=== PATIENT | male | born 1960 | race Caucasian/White ===

== ENCOUNTER 2022-04-10 07:32 | Inpatient (IN) | payer BC, OTHER ==
[~2022-04-10] VITALS: Ht 180.3 cm; Wt 133.1 kg
[2022-04-10 08:00] LABS: Basophils # (auto) 0.1 10 ^3/uL (0-0.2); Basophils % (auto) 1.4 % (0.0-2.0); Eosinophils # (auto) 0.1 10 ^3/uL (0-0.8); Eosinophils % (auto) 1.6 % (0.0-7.0); Hematocrit 42.4 % (41.0-53.0); Hemoglobin 14.4 g/dL (13.5-17.5); Lymphocytes # (auto) 2.6 10 ^3/uL (0.4-5.4); Lymphocytes % (auto) 32.9 % (10.0-50.0); Mean Corpuscular Hemoglobin 30.7 pg (28.0-32.0); Mean Corpuscular Hgb Conc. 34.1 g/dL (32.0-36.0); Mean Corpuscular Volume 90.3 fL (80.0-100.0); Monocytes # (auto) 0.8 10 ^3/uL (0-1.3); Neutrophils # (auto) 4.3 10 ^3/uL (1.6-8.6); Neutrophils % (auto) 54.1 % (37.0-80.0); Red Blood Cells 4.69 10^6/uL (4.5-5.90); Red Cell Distribution Width 13.3 % (11.8-14.3); White Blood Cell 7.9 10^3/uL (4.4-10.8)
[2022-04-10 08:17] LABS: Albumin 4.1 g/dL (3.4-5.0); Calcium 9.3 mg/dL (8.5-10.1); Potassium 3.9 mmol/L (3.5-5.1)
[2022-04-10 08:21] LABS: Bilirubin, Total 0.3 mg/dL (0.2-1.0); Total Protein 7.5 g/dL (6.4-8.2)
[2022-04-10 08:28] LABS: BUN/Creatinine Ratio 20.2
[2022-04-10 08:35] LABS: Urine Bacteria NONE SEEN /hpf (None Seen); Urine Blood Negative /uL (Negative); Urine Specific Gravity 1.009 (1.001-1.035); Urine WBC <1 /hpf (0 - 3)
[2022-04-10 08:47] LABS: Alcohol, Urine < 3.0 mg/dL (0-10); Amphetamine Screen, Urine NEGATIVE (NEGATIVE); Barbiturate Scree,Urine NEGATIVE (NEGATIVE); Benzodiazephine Screen, Urine NEGATIVE (NEGATIVE); Cannabinoid Screen, Urine NEGATIVE (NEGATIVE); Cocaine Screen, Urine NEGATIVE (NEGATIVE); Opiate Scree,Urine NEGATIVE (NEGATIVE); Phencyclidine Screen, Urine NEGATIVE (NEGATIVE)
[2022-04-10] MEDS ORDERED: NITROGLYCERIN 0.4 MG SL TAB SL PRN (10:15)
[2022-04-10] MEDS ORDERED: MORPHINE SULFATE INJ 2 MG/ml SYRG IV PRN (10:15)
[2022-04-10] MEDS ORDERED: DEXTROSE (50%) 50ML SYRG IV PRN (10:30)
[2022-04-10] MEDS: SODIUM CHLORIDE 0.9% 1,000 ML IV SCH (10:41)
[2022-04-10] MEDS: ACCU-CHEK COMFORT CURVE STRIP VI SCH ×2 (12:30→18:31)
[2022-04-10] MEDS: InsuLIN REG 1unit/0.01ml Soln (100units/ml) SC SCH ×2 (12:37→18:37)
[2022-04-10] MEDS: ACETAMINOPHEN 500 MG TAB PO PRN ×2 (15:40→22:20)
[2022-04-10] MEDS ORDERED: ENOXAPARIN SOD 30 MG/0.3 ML SYRINGE SC ONE (18:15)
[2022-04-10] MEDS ORDERED: CLOPIDOGREL BISULFATE 75 MG TAB PO ONE (18:15)
[2022-04-10] MEDS ORDERED: IOHEXOL 350 MG/ML 100ML IJ ONE (18:53)
[2022-04-10] MEDS ORDERED: LORazepam 2MG/ML-1ML VIAL IV PRN (20:45)
[2022-04-10] MEDS ORDERED: GABA300C10 PO (21:25)
[2022-04-10] MEDS ORDERED: BUSP10TA90 PO (21:25)
[2022-04-10] MEDS ORDERED: HYDR25TA5 PO (21:25)
[2022-04-10] MEDS ORDERED: PANT40TA57 PO (21:25)
[2022-04-10] MEDS ORDERED: CITA-77 PO (21:25)
[2022-04-10] MEDS ORDERED: GLIP5TAB12 PO (21:25)
[2022-04-10] MEDS ORDERED: PIOG1TAB51 PO (21:25)
[2022-04-10] MEDS ORDERED: CLON-853 PO (21:25)
[2022-04-10] MEDS ORDERED: ATOR-47 PO (21:25)
[2022-04-10] MEDS ORDERED: METF-371 (21:25)
[2022-04-10] MEDS ORDERED: FUR20T PO (21:25)
[2022-04-10 22:00] VITALS: BP 112/44
[2022-04-10] MEDS: ATORVASTATIN 20 MG TAB PO SCH (22:20)
[2022-04-10] MEDS: METOPROLOL TARTRATE 25 MG TAB PO SCH (22:21)
[2022-04-10] MEDS ORDERED: TRAZ50TA2 PO (22:34)
[2022-04-11] MEDS: SODIUM CHLORIDE 0.9% 1,000 ML IV SCH ×3 (00:46→16:34)
[2022-04-11] MEDS: traZODone HCL 50 MG TAB PO SCH ×2 (00:46→21:46)
[2022-04-11] MEDS: InsuLIN REG 1unit/0.01ml Soln (100units/ml) SC SCH ×5 (00:49→23:40)
[2022-04-11 03:05] VITALS: BP 100/42
[2022-04-11 05:00] VITALS: BP 119/67
[2022-04-11 05:36] LABS: Basophils # (auto) 0 10 ^3/uL (0-0.2); Basophils % (auto) 0.7 % (0.0-2.0); Eosinophils # (auto) 0.2 10 ^3/uL (0-0.8); Eosinophils % (auto) 2.3 % (0.0-7.0); Lymphocytes # (auto) 2.3 10 ^3/uL (0.4-5.4); Lymphocytes % (auto) 33.6 % (10.0-50.0); Mean Corpuscular Hemoglobin 30.8 pg (28.0-32.0); Mean Corpuscular Hgb Conc. 33.4 g/dL (32.0-36.0); Mean Corpuscular Volume 92.4 fL (80.0-100.0); Monocytes # (auto) 0.7 10 ^3/uL (0-1.3); Neutrophils # (auto) 3.7 10 ^3/uL (1.6-8.6); Neutrophils % (auto) 53.4 % (37.0-80.0); Red Blood Cells 4.54 10^6/uL (4.5-5.90); Red Cell Distribution Width 13.2 % (11.8-14.3); White Blood Cell 6.9 10^3/uL (4.4-10.8)
[2022-04-11] MEDS: ACCU-CHEK COMFORT CURVE STRIP VI SCH ×5 (06:00→23:36)
[2022-04-11 06:09] LABS: BUN/Creatinine Ratio 19.5; Bilirubin, Total 0.5 mg/dL (0.2-1.0); Calcium 8.9 mg/dL (8.5-10.1); Magnesium 1.6 mg/dL (1.6-2.6); Total Protein 6.6 g/dL (6.4-8.2)
[2022-04-11] MEDS ORDERED: ADENOSINE 111 MG in GIVE UN-DILUTED 0 ML IV STA (07:16)
[2022-04-11 09:00] VITALS: BP 134/62
[2022-04-11] MEDS: METOPROLOL TARTRATE 25 MG TAB PO SCH ×2 (10:00→21:47)
[2022-04-11] MEDS: ACETAMINOPHEN 500 MG TAB PO PRN (11:17)
[2022-04-11] MEDS: ENOXAPARIN SOD 40 MG/0.4 ML SYRINGE SC SCH ×2 (11:17→21:47)
[2022-04-11] MEDS: CLOPIDOGREL BISULFATE 75 MG TAB PO SCH (11:17)
[2022-04-11 13:00] VITALS: BP 133/56
[2022-04-11 16:46] VITALS: BP 128/68
[2022-04-11] MEDS: ATORVASTATIN 20 MG TAB PO SCH (21:46)
[2022-04-11 22:00] VITALS: BP 127/80
[2022-04-12 05:00] VITALS: BP 144/76
[2022-04-12] MEDS: ACCU-CHEK COMFORT CURVE STRIP VI SCH ×3 (05:19→18:29)
[2022-04-12] MEDS: InsuLIN REG 1unit/0.01ml Soln (100units/ml) SC SCH ×3 (05:23→18:00)
[2022-04-12 09:00] VITALS: BP 145/68
[2022-04-12] MEDS: CLOPIDOGREL BISULFATE 75 MG TAB PO SCH (10:02)
[2022-04-12] MEDS: ENOXAPARIN SOD 40 MG/0.4 ML SYRINGE SC SCH (10:03)
[2022-04-12] MEDS: METOPROLOL TARTRATE 25 MG TAB PO SCH (10:04)
[2022-04-12 13:00] VITALS: BP 151/67
[2022-04-12 16:58] VITALS: BP 141/75
[2022-04-12] MEDS: SODIUM CHLORIDE 0.9% 1,000 ML IV SCH (17:39)
== END 2022-04-12 18:58 | disposition home or self-care (01) | DRG 312 ==
LOC: ER 07:32 → TELE 10:19 → TELE-WESTW 20:45
PROVIDERS: ADMIT Registered Nurse; ATTEND Family Medicine
DX: R55 Syncope and collapse (principal); D84.9 Immunodeficiency, unspecified; Z68.41 Body mass index [BMI] 40.0-44.9, adult; I25.10 Atherosclerotic heart disease of native coronary artery without angina pectoris; I65.22 Occlusion and stenosis of left carotid artery; R07.9 Chest pain, unspecified; E66.01 Morbid (severe) obesity due to excess calories; G47.30 Sleep apnea, unspecified; F17.200 Nicotine dependence, unspecified, uncomplicated; E11.9 Type 2 diabetes mellitus without complications; E78.5 Hyperlipidemia, unspecified; Z20.822 Contact with and (suspected) exposure to COVID-19; I66.12 Occlusion and stenosis of left anterior cerebral artery; I69.320 Aphasia following cerebral infarction; G89.29 Other chronic pain; I11.9 Hypertensive heart disease without heart failure; Z82.49 Family history of ischemic heart disease and other diseases of the circulatory system; Z82.3 Family history of stroke; Z83.3 Family history of diabetes mellitus; Z79.899 Other long term (current) drug therapy; Z79.84 Long term (current) use of oral hypoglycemic drugs; Z79.82 Long term (current) use of aspirin; Z79.02 Long term (current) use of antithrombotics/antiplatelets
CPT/HCPCS: 36415; 70450; 70496; 71045; 78452; 80053; 80061; 80307; 81001; 82962; 83036; 83735; 83880; 84443; 84484; 85025; 92610; 93005; 93017; 93306; 93886; 94660; 95819; 96360; 96372; 97110; 97116; 97530; G0378; J0153; J1815